=== PATIENT | female | born 1965 | race Asian ===

== ENCOUNTER 2022-11-19 14:59 | Outpatient (AMB) | payer OTHER, SELFPAY ==
[2022-11-19 15:12] VITALS: BP 143/78; PULSE 55; RESP 14; O2SAT 98; BMI 27.5
--- NOTE | 2022-11-19 15:12 | A.OFFVIS_ITS ---
Intake Vital Signs 11/19/22 15:12 Height 5 ft 4 in Weight 160 lb BMI 27.5 BP 143/78 H Blood Pressure Location Lt brachial Position Sitting Respiration 14 Pulse 55 Pulse Source Pulse Oximeter Pulse Oximetry (%) 98 Oxygen Delivery Method Room Air Intake Visit Reasons: Spondylosis w/o radiculopathy of myelopathy Allergies No Known Allergies Allergy (Verified 11/19/22 15:13) Medication List - Last Reconciled 11/19/22 by Caty Gorman LPN amlodipine 5 mg PO DAILY cyclobenzaprine 10 mg PO TID PRN gabapentin 100 mg PO DAILY lidocaine 5% 1 patch topical DAILY HPI Spondylosis w/o radiculopathy of myelopathy HPI Details 56-year-old female presenting today for a spondylosis w/o radiculopathy or myelopathy. She has a longstanding history of cervical and lumbar spondylosis presenting with history of right shoulder pain, mid back pain as well as lower back pain associated with left leg numbness. 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 She had a work-related injury in the past. She states getting hit by a steel door in the back. Pain is rated as 5 to 6/10 in intensity and comes and goes over the course of the day. She noticed occasional numbness and paresthesia in her right arm and fingers. She also has occasional numbness in her foot. She states that her last MRI scan was at [facility]. she is unsure if she has had a cervical or lumbar spine MRI in the past, or both. Recently she was ordered a new lumbar spine MRI by her PCP. Her MRI scan was declined by her insurance company, for unknown reasons. She has completed multiple rounds of physical therapy in the past, with the most recent being last fall for her low back and neck at [facility]. She has a scheduled appointment at Dr. Mahan to discuss the reason of insurance denial. [facility] Medical History (Updated 11/20/22 @ 10:37 by Scottie Tabares MD) Chronic shoulder pain HTN (hypertension) Hypothyroidism Low back pain Review of Systems Const All systems reviewed & are unremarkable except as noted in HPI and below Physical Exam Vital Signs: Last Vital Signs Pulse 55 11/19/22 15:12 Resp 14 11/19/22 15:12 BP 143/78 H 11/19/22 15:12 Pulse Ox 98 11/19/22 15:12 Oxygen Delivery Method Room Air 11/19/22 15:12 BMI result Body Mass Index 27.5 General: Appears afebrile. Alert and oriented. Mood and affect appropriate. Follows and participates in conversation appropriately. Respiratory effort is unlabored. Able to transition from sit to stand unassisted. Ambulates with bilaterally normal heel strike and toe off. Spine: There is tenderness to palpation over bilateral trapezius muscles. Shoulder range of motion is full and intact on the right shoulder with no limitation. There is no pain with range of motion in the right shoulder joint area. There is mild tenderness to palpation in the mid back paraspinal region and mild tenderness to palpation in the lower back region. Lumbar extension does not reproduce pain Cervical extension and facet loading does not reproduce pain. Results Reviewed Results Reviewed: No imaging is available for review. Assessment & Plan Assessment & Plan (1) Cervical radiculitis: Code(s): M54.12 - Radiculopathy, cervical region (2) Lumbar radiculitis: Code(s): M54.16 - Radiculopathy, lumbar region Plan 1. Symptoms of numbness in right upper extremity and left lower extremity associated with neck pain and back pain, respectively, are consistent with cervical and lumbar radicular processes. Advised patient to locate her neck and low back MRI reports and images and bring them to us for review. Since she has already exhausted oral medications and physical therapy, we can consider epidural steroid injections for the cervical and lumbar spine once we have reviewed MRI results. If there are no MRI results available for the past 2-3 years, we can consider ordering a new study. 2. The patient will follow up with her results. Scribed for Dr. Tabares by Elvis Garibay, medical imaging technologist, on 11/19/2022. I, Dr. Tabares, have personally reviewed and agree with the information entered by the scribe. Coding Level of Care Code New Pt Level 4 (04468) Diagnoses Cervical radiculitis M54.12 Lumbar radiculitis M54.16
== END 2022-11-19 15:34 | disposition home or self-care (01) ==
PROVIDERS: PCP Internal Medicine; Visit Provider Internal Medicine
DX: M54.12 Radiculopathy, cervical region (principal); M54.16 Radiculopathy, lumbar region
CPT/HCPCS: 99204

== ENCOUNTER → 2022-11-19 14:59 | Outpatient (BNVA) | payer OTHER, SELFPAY | PROVIDERS: PCP Internal Medicine; Visit Provider Internal Medicine | DX: M54.12 Radiculopathy, cervical region (principal); M54.16 Radiculopathy, lumbar region | CPT/HCPCS: 99202 ==

== ENCOUNTER 2023-07-05 10:01 | Outpatient (AMB) | payer OTHER, SELFPAY ==
--- NOTE | 2023-07-05 10:05 | MHC.OFFVIS ---
Intake Vital Signs 07/05/23 10:10 Height 5 ft 4 in Weight 158 lb BMI 27.1 BP 122/67 Blood Pressure Location Lt brachial Position Sitting Respiration 12 Pulse 73 Pulse Source Pulse Oximeter Pulse Oximetry (%) 97 Oxygen Delivery Method Room Air Intake Visit Reasons: right shoulder pain Allergies No Known Allergies Allergy (Verified 07/05/23 10:11) Medication List - Last Reconciled 07/05/23 by Caty Gorman LPN amlodipine 5 mg PO DAILY cyclobenzaprine 10 mg PO TID PRN escitalopram oxalate 10 mg PO DAILY gabapentin 100 mg PO DAILY lidocaine 5% 1 patch topical DAILY meclizine mg PO HPI right shoulder pain HPI Details 57-year-old female who presents today to the office for right shoulder pain She has a longstanding history of cervical and lumbar spondylosis, presenting with a history of right shoulder pain, right midback pain, and lower back pain associated with left leg numbness. Her shoulder pain radiates down to her arm, with occasional numbness in her fingers. She had a work-related injury in the past. She says she got hit by a steel door in the back. She did physical therapy in the past for her shoulder. She did some physical therapy and rehab in the past for the neck, upper back, and midback regions. She has not had any physical therapy recently. [facility] Medical History (Updated 11/20/22 @ 10:37 by Scottie Tabares MD) Hypothyroidism Low back pain Chronic shoulder pain HTN (hypertension) Review of Systems Const All systems reviewed & are unremarkable except as noted in HPI and below Physical Exam Vital Signs: Last Vital Signs Pulse 73 07/05/23 10:10 Resp 12 07/05/23 10:10 BP 122/67 07/05/23 10:10 Pulse Ox 97 07/05/23 10:10 Oxygen Delivery Method Room Air 07/05/23 10:10 BMI result Body Mass Index 27.1 General: Appears afebrile. Alert and oriented. Mood and affect appropriate. Follows and participates in conversation appropriately. Respiratory effort is unlabored. Able to transition from sit to stand unassisted. Ambulates with bilaterally normal heel strike and toe off. Results Reviewed Results Reviewed: 03/2023: MR SPINE CERVICAL without CONTRAST FINDINGS: Straightening of the normal cervical lordosis. Mild to moderate disc space narrowing and spondylotic changes primarily at C5-6 and C6-7. Vertebral heights are well maintained. Craniocervical junction is unremarkable. Bone marrow signal is within normal limits, and no suspicious osseous lesion is identified. Prevertebral and paraspinal soft tissues are within normal limits. Visualized portions of the posterior fossa are unremarkable. Cervical cord demonstrates normal course, caliber, and signal characteristics. No epidural fluid collection or hematoma is identified. At C2-3 there is no significant disc herniation or protrusion. No central canal or neuroforaminal stenosis is demonstrated. At C3-4 there is no significant disc herniation or protrusion. No central canal or neuroforaminal stenosis is demonstrated. At C4-5 there is prominent left-sided facet arthropathy with mild bilateral uncovertebral hypertrophy producing moderate to advanced left foraminal, mild right foraminal and no significant overall central canal stenosis. At C5-6 there is broad-based central disc osteophyte complex with left greater than right uncovertebral hypertrophy producing advanced left foraminal, moderate right foraminal and mild overall central canal stenosis. At C6-7 there is broad-based central disc osteophyte complex with bilateral uncovertebral hypertrophy producing advanced bilateral foraminal and moderate central canal stenosis. At C7-T1 there is no significant disc herniation or protrusion. No central canal or neuroforaminal stenosis is demonstrated. IMPRESSION: [id number] multilevel degenerative changes of the cervical spine as described with findings most prominent from C4-5 through C6-7. Assessment & Plan Assessment & Plan (1) Cervical radiculitis: Code(s): M54.12 - Radiculopathy, cervical region Plan A referral was provided to physical therapy for three months for neck pain. The patient will receive a call to schedule an appointment. A script was also provided to the patient for physical therapy. If her pain continues to persist after three months of physical therapy, we can try a cervical epidural steroid injection. Scribed for Dr. Tabares by Elvis Garibay, medical records administrator, on 07/05/2023. I, Dr. Tabares, have personally reviewed and agree with the information entered by the scribe. Orders: Orders PT Evaluation and Treatment 07/05/23 M54.12 - Radiculopathy, cervical region Coding Level of Care Code New Pt Level 3 (40846) Diagnoses Cervical radiculitis M54.12
[2023-07-05 10:10] VITALS: BP 122/67; PULSE 73; RESP 12; O2SAT 97; BMI 27.1
== END 2023-07-05 10:52 | disposition home or self-care (01) ==
PROVIDERS: PCP Internal Medicine; Visit Provider Internal Medicine
DX: M54.12 Radiculopathy, cervical region (principal)
CPT/HCPCS: 99213

== ENCOUNTER → 2023-07-05 10:01 | Outpatient (BNVA) | payer OTHER, SELFPAY | PROVIDERS: PCP Internal Medicine; Visit Provider Internal Medicine | DX: M54.12 Radiculopathy, cervical region (principal) | CPT/HCPCS: 99212 ==

== ENCOUNTER 2023-10-18 08:41 | Outpatient (AMB) | payer OTHER, SELFPAY ==
--- NOTE | 2023-10-18 08:43 | MHC.OFFVIS ---
Vital Signs 10/18/23 08:45 Height 5 ft 4 in Weight 160 lb 4 oz BMI 27.5 BP 144/72 H Blood Pressure Location Lt brachial Position Sitting Respiration 14 Pulse 66 Pulse Source Pulse Oximeter Pulse Oximetry (%) 99 Oxygen Delivery Method Room Air Intake Visit Reasons: 3 MONTH FOLLOW UP Allergies No Known Allergies Allergy (Verified 07/05/23 10:11) HPI HPI 3 MONTH FOLLOW UP: Details: 57-year-old female who presents today for a 3-month follow-up. She states that she finished her PT last Saturday with benefit. She reports she has significant improvement in her pain. She had an MRI of the shoulder. She reports when she wakes up in the morning she noticed occasional pain in her neck. She states she has numbness and tingling in her neck all the time. Her shoulder MRI revealed tendinopathy. She would like to start the chiropractor treatment and inquires about the same. She received two cortisone injection in both shoulder and neck in the past. She has been doing therapy since 2012. [facility] Medical History (Updated 10/24/23 @ 16:24 by Scottie Tabares MD) Hypothyroidism Low back pain Chronic shoulder pain HTN (hypertension) Review of Systems Const All systems reviewed & are unremarkable except as noted in HPI and below Physical Exam Vital Signs: Last Vital Signs Pulse 66 10/18/23 08:45 Resp 14 10/18/23 08:45 BP 144/72 H 10/18/23 08:45 Pulse Ox 99 10/18/23 08:45 Oxygen Delivery Method Room Air 10/18/23 08:45 BMI result Body Mass Index 27.5 General: Appears afebrile. Alert and oriented. Mood and affect appropriate. Follows and participates in conversation appropriately. Respiratory effort is unlabored. Able to transition from sit to stand unassisted. Ambulates with bilaterally normal heel strike and toe off. Results Reviewed Results Reviewed: 03/2023: MR SPINE CERVICAL without CONTRAST FINDINGS: Straightening of the normal cervical lordosis. Mild to moderate disc space narrowing and spondylotic changes primarily at C5-6 and C6-7. Vertebral heights are well maintained. Craniocervical junction is unremarkable. Bone marrow signal is within normal limits, and no suspicious osseous lesion is identified. Prevertebral and paraspinal soft tissues are within normal limits. Visualized portions of the posterior fossa are unremarkable. Cervical cord demonstrates normal course, caliber, and signal characteristics. No epidural fluid collection or hematoma is identified. At C2-3 there is no significant disc herniation or protrusion. No central canal or neuroforaminal stenosis is demonstrated. At C3-4 there is no significant disc herniation or protrusion. No central canal or neuroforaminal stenosis is demonstrated. At C4-5 there is prominent left-sided facet arthropathy with mild bilateral uncovertebral hypertrophy producing moderate to advanced left foraminal, mild right foraminal and no significant overall central canal stenosis. At C5-6 there is broad-based central disc osteophyte complex with left greater than right uncovertebral hypertrophy producing advanced left foraminal, moderate right foraminal and mild overall central canal stenosis. At C6-7 there is broad-based central disc osteophyte complex with bilateral uncovertebral hypertrophy producing advanced bilateral foraminal and moderate central canal stenosis. At C7-T1 there is no significant disc herniation or protrusion. No central canal or neuroforaminal stenosis is demonstrated. IMPRESSION: [id number]-ad-[id number] multilevel degenerative changes of the cervical spine as described with findings most prominent from C4-5 through C6-7. Assessment & Plan Assessment & Plan (1) Cervical radiculitis: Code(s): M54.12 - Radiculopathy, cervical region Category: Medical (2) Rotator cuff impingement syndrome: Code(s): M75.40 - Impingement syndrome of unspecified shoulder Category: Medical Plan She is going to be continue home exercise program or symptoms are present but stable at this time. We will follow up in 2 months to see if they become worse and then can consider a cervical epidural steroid injection for her cervical radicular symptoms and rotator cuff injection for her right shoulder pain symptoms. Scribed for Dr. Tabares by Miley Bowman medical illustrator, on 10/18/2023. I, Dr. Tabares, have personally reviewed and agree with the information entered by the scribe Coding Level of Care Code Est Pt Level 3 (37150) Diagnoses Cervical radiculitis M54.12 Rotator cuff impingement syndrome M75.40
[2023-10-18 08:45] VITALS: BP 144/72; PULSE 66; RESP 14; O2SAT 99; BMI 27.5
== END 2023-10-18 09:16 | disposition home or self-care (01) ==
PROVIDERS: PCP Internal Medicine; Visit Provider Internal Medicine
DX: M54.12 Radiculopathy, cervical region (principal); M75.40 Impingement syndrome of unspecified shoulder
CPT/HCPCS: 99213

== ENCOUNTER → 2023-10-18 08:41 | Outpatient (BNVA) | payer OTHER, SELFPAY | PROVIDERS: PCP Internal Medicine; Visit Provider Internal Medicine | DX: M54.12 Radiculopathy, cervical region (principal); M75.40 Impingement syndrome of unspecified shoulder | CPT/HCPCS: 99212 ==

== ENCOUNTER 2024-02-21 08:57 | Outpatient (AMB) | payer OTHER, SELFPAY ==
--- NOTE | 2024-02-21 09:06 | A.OFFVIS_ITS ---
Vital Signs 02/21/24 09:08 Height 5 ft 4 in Weight 163 lb BMI 28.0 BP 133/63 Blood Pressure Location Lt brachial Position Sitting Respiration 15 Pulse 69 Pulse Source Pulse Oximeter Pulse Oximetry (%) 97 Oxygen Delivery Method Room Air Intake Visit Reasons: 2 Months F/U Allergies No Known Allergies Allergy (Verified 02/21/24 09:09) Medication List - Last Reconciled 02/21/24 by Caty Gorman LPN amlodipine 5 mg PO DAILY cyclobenzaprine 10 mg PO TID PRN escitalopram oxalate 10 mg PO DAILY gabapentin 100 mg PO DAILY lidocaine 5% 1 patch topical DAILY meclizine mg PO HPI HPI 2 Months F/U: Details: 58-year-old female who presents today to the office for two-month follow up. She reports neck and leg pain, which is bothersome. She is thinking of going to a chiropractor for lower back pain. She is still hesitant to proceed with the injection. She continues to perform stretching exercises at home. She has done physical therapy for her back, shoulder, and neck in the past. [facility] Medical History (Updated 10/24/23 @ 16:24 by Scottie Tabares MD) Hypothyroidism Low back pain Chronic shoulder pain HTN (hypertension) Review of Systems Const All systems reviewed & are unremarkable except as noted in HPI and below Physical Exam Vital Signs: Last Vital Signs Pulse 69 02/21/24 09:08 Resp 15 02/21/24 09:08 BP 133/63 02/21/24 09:08 Pulse Ox 97 02/21/24 09:08 Oxygen Delivery Method Room Air 02/21/24 09:08 BMI result Body Mass Index 28.0 General: Appears afebrile. Alert and oriented. Mood and affect appropriate. Follows and participates in conversation appropriately. Respiratory effort is unlabored. Able to transition from sit to stand unassisted. Ambulates with bilaterally normal heel strike and toe off. Results Reviewed Results Reviewed: No imaging is available for review. Assessment & Plan Assessment & Plan (1) Lumbar radiculitis: Code(s): M54.16 - Radiculopathy, lumbar region Category: Medical Plan A referral was provided to clinical care leader upon patient request. I provided her a printout with lumbar extension exercises as well as information on cervical pillows. Follow up as needed. Scribed for Dr. Tabares by Elvis Garibay, biomedical analytical scientist, on 02/21/2024. I, Dr. Tabares, have personally reviewed and agree with the information entered by the scribe. Orders: Referrals Chiropractic Referral M54.16 - Radiculopathy, lumbar region Coding Level of Care Code Est Pt Level 2 (17039) Diagnoses Lumbar radiculitis M54.16
[2024-02-21 09:08] VITALS: BP 133/63; PULSE 69; RESP 15; O2SAT 97; BMI 28.0
== END 2024-02-21 09:31 | disposition home or self-care (01) ==
PROVIDERS: PCP Internal Medicine; Visit Provider Internal Medicine
DX: M54.16 Radiculopathy, lumbar region (principal)
CPT/HCPCS: 99212

== ENCOUNTER → 2024-02-21 08:57 | Outpatient (BNVA) | payer OTHER, SELFPAY | PROVIDERS: PCP Internal Medicine; Visit Provider Internal Medicine | DX: M54.16 Radiculopathy, lumbar region (principal) | CPT/HCPCS: 99212 ==

== ENCOUNTER 2024-06-12 08:48 | Outpatient (AMB) | payer OTHER, SELFPAY ==
--- NOTE | 2024-06-12 08:56 | MHC.OFFVIS ---
Vital Signs 06/12/24 08:57 Height 5 ft 4 in Weight 163 lb BMI 28.0 BP 138/67 Blood Pressure Location Lt brachial Position Sitting Respiration 16 Pulse 69 Pulse Source Pulse Oximeter Pulse Oximetry (%) 98 Oxygen Delivery Method Room Air Intake Visit Reasons: Follow Up Processing Assistant Required: No Allergies No Known Allergies Allergy (Verified 06/12/24 08:58) Medication List - Last Reconciled 06/12/24 by Caty Gorman LPN amlodipine 5 mg PO DAILY cyclobenzaprine 10 mg PO TID PRN escitalopram oxalate 10 mg PO DAILY gabapentin 100 mg PO DAILY lidocaine 5% 1 patch topical DAILY meclizine mg PO HPI HPI Follow Up: Details: History of Present Illness The patient is a 58-year-old female presenting with chronic low back pain. She has a history of radicular symptoms, including numbness in her left leg, in association with this pain. The symptoms have persisted despite previous physical therapy interventions. She also experiences cervical radiculitis and chronic right shoulder pain. The patient reports regularly consulting a chiropractor, which was initiated upon her request following initial physical therapy. During her last visit in February 2024, a referral for home health care case manager was placed. The patient reports ongoing numbness in her left leg every day, which exacerbates during physical activities such as ascending stairs. She also describes a throbbing pain localized to the lower right side of her back and persistent right shoulder pain, described as feeling like someone is struggling with her shoulder daily. An MRI of the lumbar spine had been ordered previously but not completed. The patient prefers to have it done at [facility] due to logistical constraints. Pain Description - Onset and timing: Chronic and persistent - Quality/Character: Throbbing, aching - Primary Location: Lower right back and right shoulder - Radiation: Numbness radiating to left leg - Exacerbating Factors: Physical activities, stair climbing - Relieving Factors: Chiropractic adjustments, but limited effect - Interference with Activities: Daily numbness affecting mobility, difficulty in ascending stairs Pain Management - Affect: Reports ongoing discomfort impacting daily mood, numbness causing concern - Analgesia: Regular home health care case manager, uses patches for pain management, no current medications due to fear of cortisone - Adverse Effects: None explicitly mentioned - Activities of Daily Living: Experiences interference with mobility, particularly during stair climbing - Aberrant Drug Related Behaviors: Not applicable, no reports of medication misuse [facility] Medical History (Updated 10/24/23 @ 16:24 by Scottie Tabares MD) Hypothyroidism Low back pain Chronic shoulder pain HTN (hypertension) Physical Exam Vital Signs: Last Vital Signs Pulse 69 06/12/24 08:57 Resp 16 06/12/24 08:57 BP 138/67 06/12/24 08:57 Pulse Ox 98 06/12/24 08:57 Oxygen Delivery Method Room Air 06/12/24 08:57 BMI result Body Mass Index 28.0 Assessment & Plan Assessment & Plan (1) Lumbar radiculitis: Code(s): M54.16 - Radiculopathy, lumbar region Category: Medical Plan Plan - Order MRI of the lumbar spine to assess radicular symptoms, to be performed at [facility]. - Continue current management of right shoulder pain without cortisone injections. - Review MRI results to evaluate further treatment options. Patient was informed and verbally consented to the use of an ambient scribe for clinic note documentation during this visit. Discussion Notes During our conversation, the patient expressed concern regarding chronic low back pain, which has not improved with various treatments including physical therapy and ongoing chiropractic adjustments. We discussed procuring an MRI of the lumbar spine to better understand the cause of the radicular symptoms. This decision was well-received, given the patient's preference for [facility] due to proximity. We also addressed the option of cortisone injections for her right shoulder pain. The patient indicated apprehension towards injections, having experienced them previously, and prefers to continue using patches for now. We agreed to revisit treatment options following the MRI. Patient Instructions - Schedule an MRI at [facility] promptly. - Continue using pain patches for shoulder management as needed. - Monitor leg numbness and report any significant changes or worsening of symptoms. - Follow up to review MRI results and determine next steps in care management. Orders: Orders MR lumbar spine wo con 06/12/24 M54.16 - Radiculopathy, lumbar region Coding Level of Care Code Est Pt Level 3 (37933) Diagnoses Lumbar radiculitis M54.16
[2024-06-12 08:57] VITALS: BP 138/67; PULSE 69; RESP 16; O2SAT 98; BMI 28.0
--- OUTSIDE RECORDS SUMMARY | 2024-06-12 09:10 | XMS_ITS | Encounter Summary ---
Author Organization [employer] Address [address] [place] [address] Care Team Providers Care Investor Relations Director Name Role Phone Unavailable Primary Care Provider Unavailabl e Encounter Details Date Type Department Care Team (Latest Contact Info) Description 02/24/2020 Abstract [facility] CONVERSIONS Dental, Provider, DDS Social History Tobacco Use Types Packs/Day Years Used Date Smoking Tobacco: Never Assessed Comments Unknown Sex and Gender Information Value Date Recorded Sex Assigned at Female 03/05/2022 10:29 AM EDT Legal Sex Female 10:29 AM EDT Gender Identity Female 03/05/2022 10:29 AM EDT Sexual Orientation Choose not to disclose 2021 10:29 AM EDT documented as of this encounter Plan of Treatment Upcoming Encounters Date Type Department Care Team (Late st Contact Info) Description 07/27/2024 3:00 PM EDT Office Visit [facility] [address] [place] [address] Sara Irwin [address] [place] [address] documented as of this encounter Visit Diagnoses Not on filedocumented in this encounter
--- OUTSIDE RECORDS SUMMARY | 2024-06-12 09:10 | XMS_ITS | Clinical Summary ---
Author Organization [employer] Address [address] [facility] [address] [place] [address] Care Team Providers Care Muskrat Trapper Name Role Phone Unavailable Primary Care Provider Unavailabl e Allergies No known active allergies Medications lidocaine (Lidoderm) 5 % patch Place 1-3 patches on the skin. 03/22/2021 Active amLODIPine (Norvasc) 5 MG tablet Take 1 tablet by mouth in the morning. 03/23/2021 Active gabapentin (Neurontin) 100 MG capsule Take by mouth. Active escitalopram (Lexapro) 10 MG tablet Take 10 mg by mouth in the morning. Active Social History Tobacco Use Types Packs/Day Years Used Date Smoking Tobacco: Never Smokeless Tobacco: Never Tobacco Cessation:Counseling Given: Not Answered Comments Unknown Sex and Gender Information Value Date Recorded Sex Assigned at Female 03/05/2022 10:29 AM EDT Legal Sex Female 10:29 AM EDT Gender Identity Female 03/05/2022 10:29 AM EDT Sexual Orientation Choose not to disclose 2021 10:29 AM EDT Last Filed Vital Signs Vital Sign Reading Time Taken Comments Blood Pressure 110/60 02/25/2024 2:52 PM EDT Pulse 59 01/23/2024 3:09 PM EDT Temperature - - Respiratory Rate - - Oxygen Saturation - - Inhaled Oxygen Concentration - - Weight - - Height - - Body Mass Index - - Plan of Treatment Upcoming Encounters Date Type Department Care Team (Late st Contact Info) Description 07/27/2024 3:00 PM EDT Office Visit [facility] [address] [place] [address] Sara Irwin [address] [place] [address] Health Maintenance Due Date Last Done Comments CT Colonography 1965 Colonoscopy 1965 Colorectal Cancer Screening 1965 Depression Screening 1965 FIT DNA/Cologuard 1965 FIT 1965 FOBT 1965 HIV Screening 1965 Lipid Panel 1965 SDOH Screening 1965 Sigmoidoscopy 1965 Alcohol/Substance Use Screening 1977 Hepatitis C Screening 12/22/1983 DTaP/Tdap/Td Vaccines (1 - Tdap) 1984 Hepatitis B Vaccines (1 of 3 - 19+ 3-dose series) 1984 Pap Smear 1986 Cervical Cancer Screening 12/22/1995 HPV/Cotest 12/22/1995 Mammogram 2005 Pneumococcal Vaccine: 50+ Years (1 of 1 - PCV) 12/22/2015 Zoster Vaccines (1 of 2) 12/22/2015 Dental X-Ray: Full Mouth 02/24/2023 02/24/2020, 12/04 Dental X-Ray: Bitewings 11/01/2023 10/31/19 23, 10/13/2021, 02/24/2020, Additional history exists COVID-19 Vaccine ( season) 2024 Influenza Vaccine (#1) 2024 Dental Oral Exam 07/23/2024 01/23/2024, , 10/13/2021, Additional history exists Dental Prophylaxis 07/23/2024 01/23/2024, 0 07/09/2023, 10/30/2022, Additional history exists Tobacco Screening 02/24/2025 02/25/2024 RSV Patients and Patients Aged 60 years or older (1 - 1-dose 75+ series) 2040 HIB Vaccines Aged Out No longer eligi ble based on patient's age to complete this topic HPV Vaccines Aged Out No longer eligi ble based on patient's age to complete this topic Hepatitis A Vaccines Aged Out No long er eligible based on patient's age to complete this topic IPV Vaccines Aged Out No longer eligi ble based on patient's age to complete this topic Meningococcal Vaccine Aged Out No tri nando eligible based on patient's age to complete this topic Pneumococcal Vaccine: Pediatrics (0 to 5 Years) and At-Risk Patients (6 to 49) Years) Aged Out No longer eligible based on patient's age to complete this topic RSV under 20 months Aged Out No longe r eligible based on patient's age to complete this topic Rotavirus Vaccines Aged Out No longer eligible based on patient's age to complete this topic Procedures Procedure Name Priority Date/Time Associated Diagnosis Comments PROPHYLAXIS - ADULT Routine 01/23/2024 3 :00 PM EDT PERIODIC ORAL EVALUATION - ESTABLISHED PATIENT Routine 01/23/2024 3:00 PM EDT BITEWINGS - 4 RADIOGRAPHIC IMAGES Routine 10/30/2022 1:00 PM EDT DIAGNOSTIC - DIAGNOSTIC IMAGING - INTRAORAL - COMPREHENSIVE SERIES OF RADIOGRAPHIC IMAGES Routine 02/24/2020 12:00 AM EDT from Last 3 Months or Most Recently Relevant to Health Maintenance Insurance [facility] [employer] ST[place] AD[place]
--- OUTSIDE RECORDS SUMMARY | 2024-06-12 09:10 | XMS_ITS | Encounter Summary ---
Author Organization [employer] Address [address] [facility] [address] [place] [address] Care Team Providers Care Sales Agent Food Vending Service Name Role Phone Unavailable Primary Care Provider Unavailabl e Encounter Details Date Type Department Care Team (Latest Contact Info) Description 07/17/2018 Abstract [facility] CONVERSIONS Dental, Provider, DDS Social History Tobacco [...] Description 07/27/2024 3:00 PM EDT Office Visit [facility] [address] [place] [address] Sara Irwin [address] [place] [address] documented as of this encounter Visit Diagnoses Not on filedocumented in this encounter
--- OUTSIDE RECORDS SUMMARY | 2024-06-12 09:10 | XMS_ITS | Clinical Summary ---
Author Organization [address] [facility] Address [address] [place] [address] Phone Care Team Providers Care Police Superintendent Name Role Phone Deisy Winter MD Primary Care Provider [phone] Allergies No known active allergies Medications Medication Sig Dispensed Refills Start Date End Date Status amLODIPine (NORVASC) 5 mg tablet Take 1 tablet (5 mg total) by mouth 1 (one) time each day. 03/23/2021 Active gabapentin (NEURONTIN) 100 mg capsule TAKE ONE CAPSULE BY MOUTH ONCE DAILY AT NIGHT 02/12/2023 Active lisinopriL (PRINIVIL,ZESTRIL) 10 mg tablet Take 1 tablet (10 mg total) by mouth 1 (one) time each day. Active omeprazole magnesium (PRILOSEC ORAL) Take 1 tablet by mouth 1 (one) time each day. Active Active Problems Problem Noted Date Diagnosed Date DJD (degenerative joint disease), cervical 04/10 Shoulder pain, right 04/10/2019 Overview (02/10/2024): 07/2018 re-injured shoulder injury; original Work injury 2014 Back pain 04/08/2019 Chronic neck pain 04/08/2019 Overview (02/10/2024): Original Worker's comp injury 2014 Chronic post-traumatic headache 04/08/2019 HTN (hypertension) 04/08/2019 Hypothyroidism 04/08/2019 Surgical History Surgery Date Site/Laterality Comments OTHER SURGICAL HISTORY Right PROCEDURE: HISTORICAL EAR SURGERY Medical History Medical History Date Comments DJD (degenerative joint dise ase), cervical 04/10/2019 DX:DJD (degenerative joint disease), cervical Back pain 04/08/2019 DX:Back pain Chronic post-traumatic headache 04/08/2019 DX:Chronic post-traumatic headache HTN (hypertension) 04/08/2019 DX:HTN (hyper tension) Hypothyroidism 04/08/2019 DX:Hypothyroidis m Chronic neck pain 04/08/2019 DX:Chronic nec k pain; COMMENT: Original Worker's comp injury 2014 Shoulder pain, right 04/10/2019 DX:Shoulder pain, right; COMMENT: 07/2018 re-injured shoulder injury; original Work injury 2014 Family History Medical History Relation Name Comments No Known Problems Brother No Known Problems Daughter No Known Problems Father No Known Problems Mother No Known Problems Other No Known Problems Sister No Known Problems Son Autoimmune disease Neg Hx Breast cancer Neg Hx Colon cancer Neg Hx Coronary artery disease Neg Hx Diabetes Neg Hx Heart attack Neg Hx Heart failure Neg Hx Hyperlipidemia Neg Hx Hypertension Neg Hx Mental illness Neg Hx Prostate cancer Neg Hx Sleep apnea Neg Hx Thyroid disease Neg Hx Relation Name Status Comments Brother Daughter Father Mother Other Sister Son Social History Tobacco Use Types Packs/Day Years Used Date Smoking Tobacco: Never Smokeless Tobacco: Never Alcohol Use Standard Drinks/Week Comments No 0 (1 standard drink = 0.6 oz pur e alcohol) Sex and Gender Information Value Date Recorded Sex Assigned at Not on file Gender Identity Not on file Sexual Orientation Not on file Job Start Date Occupation Industry Not on file Not on file Not on file Obstetrics History Last Filed Vital Signs Vital Sign Reading Time Taken Comments Blood Pressure - - Pulse - - Temperature - - Respiratory Rate - - Oxygen Saturation - - Inhaled Oxygen Concentration - - Weight 81.2 kg (179 lb) 09/04/2023 3:52 PM EDT Height 165.1 cm (5' 5 ) 09/04/2023 3:52 PM EDT Body Mass Index 29.79 09/04/2023 3:52 PM EDT Plan of Treatment Upcoming Encounters Date Type Department Care Team (Late st Contact Info) Description 08/06/2024 3:45 PM EDT Office Visit [facility] [place] [address] [phone] Shankar Bustamante, DPM [address] [address] Health Maintenance Due Date Last Done Comments Breast Cancer Screening 1965 DTaP,Tdap,and Td Vaccines (1 - Tdap) 1984 Hepatitis B Vaccines (1 of 3 - 19+ 3-dose series) 1984 Cervical Cancer Screening: P ap Smear 1986 Zoster Vaccines (1 of 2) 12/22/2015 Colorectal Cancer Screening: Stool Based Tests (FOBT/FIT) 04/10/2022 Depression Screening 04/10/2022 HIV Screening 04/10/2022 Hepatitis C Screening 04/10/2022 Social Influencers of Health Screening 04/10/2022 Hypertension/CHF/CAD Annual BMP Blood Test 04/11/2022 05/27/2020 COVID-19 Vaccine ( - 2023-2 5 season) 2024 Influenza Vaccine (#1) 2024 Cholesterol Screening (Lipid Panel) 05/27/2025 05/27/2020 HIB Vaccines Aged Out No longer eligi [...] on patient's age to complete this topic MMR Vaccines Aged Out No longer eligi ble based on patient's age to complete this topic Meningococcal ACWY Vaccine Aged Out N o longer eligible based on patient's age to complete this topic Pneumococcal Vaccine: Pediat rics (0 to 5 Years) and At-Risk Patients (6 to 64 Years) Aged Out No longer eligi ble based on patient's age to complete this topic RSV Immunization Patients Un melissa 20 months Aged Out No longer eligible b ased on patient's age to complete this topic Varicella Vaccines Aged Out No longer eligible based on patient's age to complete this topic Procedures Procedure Name Priority Date/Time Associated Diagnosis Comments ANNUAL BMP BLOOD TEST Routine 05/27/2020 LIPID PANEL Routine 05/27/2020 from Last 3 Months or Most Recently Relevant to Health Maintenance Results * Annual BMP Blood Test (05/27/2020) Annual BMP Blood Test abstracted Historical Provider MD HEALTH MAINTENANC E * (ABNORMAL) Lipid panel (05/27/2020) LDL/HDL Ratio 3 0 - 4 Triglycerides 72 0 - 150 mg/dL Cholesterol 203(A) 0 - 200 mg/dL HDL 66 40 mg/dL LDL Cholesterol 123(A) 0 - 100 mg/dL Blood Venous blood specimen / Unknown Historical Provider LAB BLOOD ORDERAB LES from Last 3 Months or Most Recently Relevant to Health Maintenance Care Teams Police Superintendent Relationship Specialty Start Date End Date Deisy Winter MD [address] [place] [phone] PCP - General 10/11/21
--- OUTSIDE RECORDS SUMMARY | 2024-06-12 09:10 | XMS_ITS | Encounter Summary ---
Author Organization [employer] Address [address] [facility] [address] [place] [address] Care Team Providers Care Biometrics Instructor Name Role Phone Unavailable Primary Care Provider Unavailabl e Encounter Details Date Type Department Care Team (Latest Contact Info) Description 10/13/[address] [facility] CONVERSIONS Dental, Provider, DDS Social History [...] Description 07/27/2024 3:00 PM EDT Office Visit [facility] [address] [place] [address] Sara Irwin [address] [place] [address] documented as of this encounter Visit Diagnoses Not on filedocumented in this encounter
== END 2024-06-12 09:58 | disposition home or self-care (01) ==
PROVIDERS: PCP Internal Medicine; Visit Provider Internal Medicine
DX: M54.16 Radiculopathy, lumbar region (principal)
CPT/HCPCS: 99213

== ENCOUNTER → 2024-06-12 08:48 | Outpatient (BNVA) | payer OTHER, SELFPAY | PROVIDERS: PCP Internal Medicine; Visit Provider Internal Medicine | DX: M54.16 Radiculopathy, lumbar region (principal) | CPT/HCPCS: 99212 ==